=== PATIENT | male | born 1980 | race Caucasian/White ===

== ENCOUNTER 2018-05-25 08:04 | Emergency (ER) | payer OTHER, MEDICAID, SELFPAY ==
[2018-05-25 08:12] VITALS: BP 136/76; PULSE 68; RESP 20; TEMP 36.4; O2SAT 99; BMI 33.9
--- NOTE | 2018-05-25 08:18 | DI.RAD.S_ITS ---
PROCEDURE: XR FINGER RT MIN 2V INDICATIONS: injury, pain TECHNIQUE: AP hand, 2 views of the right second finger(s) acquired. COMPARISON: None. FINDINGS: Bones: No fractures or dislocations. No suspicious bony lesions. Soft tissues: No suspicious soft tissue calcifications. IMPRESSION: No acute radiographic findings. If pain persists, repeat study in 5-7 days is recommended to exclude occult fracture. Dictated by: Catherine Patterson M.D. on 05/25/2018 at 8:48 Approved by: Catherine Patterson M.D. on 05/25/2018 at 8:48
--- NOTE | 2018-05-25 08:19 | DI.RAD.S_ITS ---
PROCEDURE: XR RIBS RT MIN 3V W CXR 1V INDICATIONS: injury, pain TECHNIQUE: 4 views of the right ribs were acquired, along with a single view chest. COMPARISON: None. FINDINGS: Surgical changes and devices: None. Bones and chest wall: No fractures or dislocations. No suspicious bony lesions. Overlying soft tissues appear unremarkable. Lungs and pleura: No pleural effusions or pneumothorax. Lungs appear clear. Mediastinum: Mediastinal contours appear normal. Heart size is normal. IMPRESSION: No acute cardiopulmonary findings. No displaced rib fractures visualized. Dictated by: Catherine Patterson M.D. on 05/25/2018 at 8:48 Approved by: Catherine Patterson M.D. on 05/25/2018 at 8:48
--- NOTE | 2018-05-25 08:27 | ED_ITS ---
HPI - Fall General Chief Complaint: Fall Stated Complaint: Fell-upper right torso pain Time Seen by Provider: 05/25/18 08:16 Source: patient and family ( ) Mode of arrival: ambulatory Limitations: no limitations History of Present Illness HPI Narrative: this is a 37-year-old male who comes to the emergency department with complaint of right rib pain as well as a jammed finger and some bruising on his inner thighs. Patient states he was working on his boat when he fell forward through the nam onto the engine. patient states the engine is only probably a to 12 in below the nam opening. He tried to catch himself and jammed his finger. He has some bruising on his inner thighs and also has some pain on his right side of his chest. He states he still it is not very painful. If he tries to go from lying to sitting up that causes pain on the right side. He denies any shortness of breath. He has not noticed any bruising. He has not had any head injury, no neck or back pain. He did have any loss of consciousness or strike his head. No nausea or vomiting. no issues with bowel movements. No blood in urine. Patient is able to fully flex his finger. He has some bruising at the distal end of the 4th finger on his right hand. Also some bruising is inner thighs but states it is mild. He took ibuprofen last night and then again this morning at 7:00 a.m. and states that that was helpful. He denies any other past medical issues, no surgeries. He denies any allergies to medications. MD complaint: fall Related Data Home Medications Medication Instructions Recorded Confirmed [UNK THROAT SPRAY] #0 08/15/11 Allergies Allergy/AdvReac Type Severity Reaction Status Date / Time No Known Drug Allergies Allergy Verified 05/25/18 08:18 Review of Systems Review of Systems All systems reviewed & are unremarkable except as noted in HPI and below Constitutional Denies frequent falls and Denies headache(s) ENT Ears, Nose, Mouth, and Throat: Denies dizziness, Denies headache(s) and Denies neck pain Cardiovascular Reports chest pain (Right-sided chest), Denies irregular heart rhythm, Denies lightheadedness, Denies palpitations, Denies dyspnea, Denies dyspnea on exertion and Denies orthopnea Respiratory Denies cough, Denies dyspnea, Denies dyspnea on exertion and Denies wheezing Gastrointestinal Gastrointestinal: Denies abdominal pain, Denies diarrhea, Denies nausea and Denies vomiting Genitourinary Reports as per HPI and Denies other (Flank pain) Musculoskeletal Denies back pain, Denies neck pain, Denies numbness and Reports other (Bruising and inner thighs. Mild discomfort inner thighs.) Integumentary/Breasts Comments: bruising inner things and finger Neurologic Denies behavioral changes, Denies confusion, Denies dizziness, Denies frequent falls, Denies headache(s) and Denies numbness Psychiatric Denies behavioral changes and Denies confusion Endocrine Denies palpitations Allergic/Immunologic Denies wheezing Exam Initial Vital Signs Initial Vital Signs: Vital Signs Temperature 97.5 F L 05/25/18 08:12 Pulse Rate 68 05/25/18 08:12 Respiratory Rate 20 05/25/18 08:12 Blood Pressure 136/76 05/25/18 08:12 Pulse Oximetry 99 05/25/18 08:12 Const General: cooperative and well developed Nutritional Appearance: well nourished Orientation: alert, awake, oriented x3 and not confused [facility] Head: normal to inspection, normocephalic and atraumatic Ears: external ears normal Nose: external nose normal and No nasal discharge Face and sinus: sinuses nontender, face symmetric, no sinus tenderness and No dry mucous membranes Mouth: oral mucosae normal and moist mucous membranes Teeth and gingiva: dentition normal Throat: tonsils normal and uvula midline Neck Neck: normal visual inspection, trachea midline, No lymphadenopathy, No midline deformity and No JVD Lymphatic: No lymphedema Chest Chest: normal inspection of the chest, normal palpation of entire chest wall, No crepitus and No localized rib tenderness with anteroposterior compression Resp Effort & Inspection: normal respiratory effort, able to speak in complete sentences, no respiratory distress and no use of accessory muscles Auscultation: clear to auscultation bilaterally, no rales, no rhonchi and no wheezes Cardio Rate: regular rate Rhythm: regular rhythm Heart Sounds: no click, no gallops, no murmurs and no rubs Pulses: normal peripheral pulses GI Inspection: non-distended Palpation: soft, no hepatosplenomegaly, No guarding, No pulsatile mass and No tender Auscultation: normal bowel sounds Back/Spine/Pelvis Back: normal to inspection Cervical Spine: cervical ROM normal and No cervical spinal tenderness Thoracic/Lumbar Spine: thoraco-lumbar ROM normal, No thoraco-lumbar spasm, No thoracic spinal tenderness and No lumbar spinal tenderness Skin Trauma: other (ecchymosis b/l inner thighs. bruising of 2nd digit on right hand.) Neuro General: alert, oriented x3, gait normal and no focal motor deficits Cranial Nerves: CN's II-XI intact bilaterally Cognition: normal cognition Speech: speech normal Motor: muscle tone normal throughout, strength 5/5 throughout and other (normal gait) Sensory Exam: no sensory deficits noted Extrem Right upper extremity: hand Details: abnormal to inspection, normal capillary refill, neuromotor exam normal, tendon exam normal, normal ROM of fingers, swelling and ecchymosis (2nd digit distal ) Location: of the 2nd digit; no tenderness [facility] Social History Smoking Status: Never smoker Course Orders Ordered: ED Orders 05/25/18 08:18 XR finger RT min 2V Stat 05/25/18 08:19 XR ribs RT min 3V w CXR1V Stat Vital Signs - 8 hr 05/25/18 08:12 Temperature 97.5 F L Pulse Rate 68 Respiratory Rate 20 Blood Pressure 136/76 Pulse Oximetry 99 MDM - Fall Imaging Data ribs and CXR: Radiologist's impression: Patient: Nic Jane MR#: [id number] : 1980 Acct:[id number] Age/Sex: 37 / M Date of Service: 05/25/18 Loc: ED Accession Number: [id number] Procedure: XR ribs RT min 3V w CXR1V Ordering Provider: Marlena Madison D.O. PROCEDURE: XR RIBS RT MIN 3V W CXR 1V INDICATIONS: injury, pain TECHNIQUE: 4 views of the right ribs were acquired, along with a single view chest. COMPARISON: None. FINDINGS: Surgical changes and devices: None. Bones and chest wall: No fractures or dislocations. No suspicious bony lesions. Overlying soft tissues appear unremarkable. Lungs and pleura: No pleural effusions or pneumothorax. Lungs appear clear. Mediastinum: Mediastinal contours appear normal. Heart size is normal. IMPRESSION: No acute cardiopulmonary findings. No displaced rib fractures visualized. Dictated by: Catherine Patterson M.D. on 05/25/2018 at 8:48 Approved by: Catherine Patterson M.D. on 05/25/2018 at 8:48 finger xray: Radiologist's impression: Patient: Nic Jane MR#: [id number] : 1980 Acct:[id number] Age/Sex: 37 / M Date of Service: 05/25/18 Loc: ED Accession Number: [id number] Procedure: XR finger RT min 2V Ordering Provider: Marlena Madison D.O. PROCEDURE: XR FINGER RT MIN 2V INDICATIONS: injury, pain TECHNIQUE: AP hand, 2 views of the right second finger(s) acquired. COMPARISON: None. FINDINGS: Bones: No fractures or dislocations. No suspicious bony lesions. Soft tissues: No suspicious soft tissue calcifications. IMPRESSION: No acute radiographic findings. If pain persists, repeat study in 5 -7 days is recommended to exclude occult fracture. Dictated by: Catherine Patterson M.D. on 05/25/2018 at 8:48 Approved by: Catherine Patterson M.D. on 05/25/2018 at 8:48 Discharge Plan Departure Patient Disposition: Home Clinical Impression: Jammed interphalangeal joint of finger of right hand, Contusion of left thigh, Contusion of right thigh Discharge Date/Time: 05/25/18 09:54 Interventions: ED Discharge Assessment Last Done: 05/25/18 09:54 Instructions: DI for Finger Sprain Activity Restrictions/Additional Instructions: Follow-up in 7-10 days if your not having any improvement Um of your finger. Return to the emergency department if your having any rapidly worsening symptoms , numbness or tingling, weakness or difficulty with movement. You may continue ibuprofen 800 mg every 8 hr as needed. You may also take Tylenol up to a 1000 mg every 8 hr as needed with or instead of this. Prescriptions: No Action [UNK THROAT SPRAY] Qty: 0 RF: 0
[2018-05-25 09:54] VITALS: BP 127/71; PULSE 54; RESP 20; O2SAT 98; O2SAT 99
== END 2018-05-25 09:54 | disposition home or self-care (01) ==
PROVIDERS: Emergency Provider Emergency Medicine
DX: S69.91XA Unspecified injury of right wrist, hand and finger(s), initial encounter (principal); S70.12XA Contusion of left thigh, initial encounter; S70.11XA Contusion of right thigh, initial encounter; W01.10XA Fall on same level from slipping, tripping and stumbling with subsequent striking against unspecified object, initial encounter
CPT/HCPCS: 71101; 73140; 99282; 99283

== ENCOUNTER 2018-06-15 14:48 | Emergency (ER) | payer OTHER, MEDICAID, SELFPAY ==
[2018-06-15 14:52] VITALS: BP 132/68; PULSE 84; RESP 14; TEMP 36.4; O2SAT 97
--- NOTE | 2018-06-15 15:13 | ED.EYEPROB ---
HPI - Eye Problem General Chief complaint: Eye Problems Stated complaint: something in rt eye Time Seen by Provider: 06/15/18 15:06 Source: patient Mode of arrival: ambulatory Limitations: no limitations History of Present Illness HPI Narrative: Patient is a 38-year-old male who presents with right eye pain. He states that he was cutting something 5 days ago he thought he may have gotten sawdust in it. However the 1st 2 days after his cutting wood is he did have any issues. It progressively got to be more irritated. He was rubbing it quite a bit he wakes up in the morning with goopy in his eye. He denies blurry vision or double vision. He does not wear contacts or glasses. chief complaint: eye pain Related Data Home Medications Medication Instructions Recorded Confirmed [UNK THROAT SPRAY] #0 08/15/11 Previous Rx's Medication Instructions Recorded gentamicin 2 drop EYE-RIGHT Q4HRWA #5 ml 06/15/18 Allergies Allergy/AdvReac Type Severity Reaction Status Date / Time No Known Drug Allergies Allergy Verified 05/25/18 08:18 Review of Systems Review of Systems GENERAL: Denies chills,fever HEENT: See HPI RESPIRATORY: Denies dyspnea, cough, wheezing CARDIOVASCULAR: Denies chest pain, palpitations GASTROINTESTINAL: Denies nausea, vomiting MUSCULOSKELETAL: Denies extremity pain, injury SKIN: No rash, no laceration, no pruritus NEUROLOGIC: Denies weakness, dizziness, headache, numbness 8 point review of systems is negative except for those stated above and HPI PFSH Medical History Healthy adult (Acute) Social History Smoking Status: Never smoker Exam Initial Vital Signs Initial Vital Signs: Vital Signs Temperature 97.5 F L 06/15/18 14:52 Pulse Rate 84 06/15/18 14:52 Respiratory Rate 14 06/15/18 14:52 Blood Pressure 132/68 06/15/18 14:52 Pulse Oximetry 97 06/15/18 14:52 GENERAL: Well-appearing, well-nourished and in no acute distress. CARDIOVASCULAR: peripheral pulses in tact, cap refill <2 sec RESPIRATORY: No respiratory distress, speaks in full sentences without difficulty EXTREMITIES: Normal range of motion, no clubbing or edema. Neurovascularly intact NEUROLOGICAL: Cranial nerves II through XII grossly intact. Normal gait and speech. SKIN: Warm, dry, no petechiae, no rashes or lesions. Eyes Eyelids: eyelids normal Conjunctivae: conjunctivae normal and conjunctival abnormality right conjunctival injection diffuse Sclera: sclerae normal Cornea: corneas normal and fluorescein used Pupils: PERRL EOM: EOM intact bilaterally Course Vital Signs - 8 hr 06/15/18 14:52 Temperature 97.5 F L Pulse Rate 84 Respiratory Rate 14 Blood Pressure 132/68 Pulse Oximetry 97 MDM - Eye Problem Lab Data Attestation: I reviewed the patient's lab results. Visual acuity please see nursing notes Discharge Plan Departure Patient Disposition: Home Clinical Impression: Acute conjunctivitis of right eye Discharge Date/Time: 06/15/18 15:36 Interventions: ED Discharge Assessment Last Done: 06/15/18 15:36 Instructions: Conjunctivitis Activity Restrictions/Additional Instructions: *You have been diagnosed with right eye conjunctivitis *What to do: Were some clots as well outside the may be sensitive to light. *Continue to take medications as directed Eye drops every 4 hr while awake Tylenol and ibuprofen if needed pain take as directed *Follow up with your primary care provider in 2-3 days *Return to ER if you should have increasing pain change in vision or any new, worsening or concerning symptoms Prescriptions: New gentamicin 0.3 % drops 2 drop EYE-RIGHT Q4HRWA Qty: 5 RF: 0 No Action [UNK THROAT SPRAY] Qty: 0 RF: 0
--- NOTE | 2018-06-19 17:42 | PC.NURSE ---
Attempted to follow up,pt not available
== END 2018-06-15 15:36 | disposition home or self-care (01) ==
LOC: ED 15:26
PROVIDERS: Emergency Provider Emergency Medicine
DX: H10.31 Unspecified acute conjunctivitis, right eye (principal)
CPT/HCPCS: 99282

== ENCOUNTER 2023-04-09 09:15 | Emergency (ER) | payer OTHER, SELFPAY ==
[2023-04-09 09:35] VITALS: BP 135/93; PULSE 63; RESP 16; TEMP 36.7; O2SAT 99; BMI 36.1
--- NOTE | 2023-04-09 09:56 | ED.EXTPRO ---
HPI - Extremity Problem General Chief complaint: Extremity Problem,Nontraumatic Stated complaint: L arm pain, sent from [facility] for heart monitoring Time Seen by Provider: 04/09/23 09:41 Source: patient Mode of arrival: Ambulatory History of Present Illness HPI Narrative: Patient here from walk-in clinic for evaluation of left bicep/medial biceps pain. This started about 3 months ago. Denies denies any chest pain/exertional chest pain sweating nausea syncope numbness or tingling to the body or limbs. Patient does not smoke. No history of hypertension hyperlipidemia. No family history of coronary disease. No history aortic aneurysms or dissections. No history of blood clots in legs or lungs. Patient states he has no exertional chest pain or dyspnea. Pain in the left biceps is not triggered by exertion. However, patient states it only happens when he is driving. It is when his left hand is on the steering wheel. 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 Pain in the left bicep will start about 1 hour after driving. It quickly, again quickly resolved by straightening his left arm out. It resolves within 4 seconds. Patient agrees at this time no blood work or chest x-ray but does agree with EKG. Last episode was 2 days ago. He does not have this every day. He does not have this at home. It is only while driving. Patient denies any neck pain or any worsening pain with moving his head or neck. Related Data Allergies Allergy/AdvReac Type Severity Reaction Status Date / Time No Known Drug Allergies Allergy Verified 04/09/23 09:39 Review of Systems Review of Systems Narrative: GENERAL: negative chills, fatigue, malaise, fever, sweats. HEENT: negative sinus pain, ear pain, sore throat RESPIRATORY: negative dyspnea, cough CARDIOVASCULAR: negative chest pain, palpitations GASTROINTESTINAL: negative nausea, vomiting, abdominal pain : negative dysuria, frequency, hematuria MUSCULOSKELETAL: Positive muscle or bony pain SKIN: negative rash, skin lesions NEUROLOGIC: negative weakness, numbness ROS Unobtainable: All systems reviewed & are unremarkable except as noted in HPI and below Patient History Medical History Healthy adult Social History Smoking Status: Never smoker Smoking Status: Never smoker alcohol intake frequency: 0-2 drinks per day Substance Use Type: marijuana Exam Narrative Exam Narrative: GENERAL: in no distress, not toxic not dyspneic HEAD: Normocephalic. EYES: Pupils equal round ENT: Mucous membranes moist. NECK: Trachea midline. No midline tenderness or step-off. No pain with rotating his head left or right or tilting up and down. CARDIOVASCULAR: Regular rate and rhythm without murmurs RESPIRATORY: Clear to auscultation. Breath sounds equal bilaterally. No wheezes, rales, or rhonchi. GASTROINTESTINAL: Abdomen soft, non-tender EXTREMITIES: No gross deformities. Examination left upper extremity shoulder to fingers exposed. Limb is warm soft and pink strong radial pulse. 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 Nontender left bicep. No palpable cords. No discoloration. At this time patient denies any pain in the left bicep. No increased pain with ringing his hand above his head or behind his back. BACK: No flank tenderness. NEURO: AOx4. SKIN: Warm and dry PSYCH: Not anxious, is cooperative Initial Vital Signs Initial Vital Signs: Vital Signs Temperature 98.1 F 04/09/23 09:35 Pulse Rate 63 04/09/23 09:35 Respiratory Rate 16 04/09/23 09:35 Blood Pressure 135/93 H 04/09/23 09:35 Pulse Oximetry 99 04/09/23 09:35 Oxygen Delivery Method Room Air 04/09/23 09:35 Scores HEART Score Heart Score history: Slightly Suspicious Heart Score EKG: Normal Heart Score Age: < 45 years old Heart Score risk factors: No known risk factors Course Orders Ordered: ED Orders 04/09/23 09:35 EKG-12 Lead Stat Vital Signs Vital signs: Vital Signs - 8 hr 04/09/23 09:35 04/09/23 10:11 04/09/23 10:14 Temperature 98.1 F Pulse Rate 63 61 Pulse Rate [Left Radial] 72 Respiratory Rate 16 Blood Pressure 135/93 H 120/77 Pulse Oximetry 99 98 Oxygen Delivery Method Room Air Room Air MDM - Extremity (Nontraumatic) MDM Narrative Medical decision making narrative: Patient here from walk-in clinic for evaluation of left bicep/medial biceps pain. This started about 3 months ago. Denies denies any chest pain/exertional chest pain sweating nausea syncope numbness or tingling to the body or limbs. Patient does not smoke. No history of hypertension hyperlipidemia. No family history of coronary disease. No history aortic aneurysms or dissections. No history of blood clots in legs or lungs. Patient states he has no exertional chest pain or dyspnea. Pain in the left biceps is not triggered by exertion. However, patient states it only happens when he is driving. It is when his left hand is on the steering wheel. 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 Pain in the left bicep will start about 1 hour after driving. It quickly, again quickly resolved by straightening his left arm out. It resolves within 4 seconds. Patient agrees at this time no blood work or chest x-ray but does agree with EKG. Last episode was 2 days ago. He does not have this every day. He does not have this at home. It is only while driving. Patient denies any neck pain or any worsening pain with moving his head or neck. After history and exam EKG ordered, at this time no laboratory studies or imaging indicated. Clinically this is reproducible with patient's driving and position of the left arm. It is quickly resolved with straightening his left arm out. MDM CC: Left bicep pain Complicating co-morbidities: None Data collected from: Patient Medical records reviewed: No recent visit for this complaint Differential considered: Includes but not limited to [place] angina unstable angina DVT PE aortic dissection cervical radiculopathy peripheral neuropathy Exam documented above, pertinent findings include: Nontender arm Lab Test results independently reviewed as above. Pertinent findings: None indicated at this time Independently reviewed EKG sinus bradycardia rate 43, patient complains of no chest pain or dyspnea or dizziness Imaging studies independently reviewed: None indicated at this time. No chest x-ray. Clinically not DVT. No ultrasound Consultations: None indicated this time Treatments: None indicated at this time Re-evaluations: Reviewed exam with patient. Reviewed EKG as well. At this time he does agree this is likely positional due to his long hours of driving with this line of work. It is quickly resolved with straightening his arm out. Referral for primary care given. He will try changing position of his arm when driving. Return precautions reviewed with him. He desires discharge home Discussion: Appropriate for discharge home. Patient is right-handed. However pain is only occurring when he is driving for over an hour. This does not happen every time. However given that it quickly resolves after straightening out his arm within 4 seconds, this is likely not cardiac. Patient has low heart score. Pain is reproducible. Pain is quickly resolved with straightening his arm out. No blood work or imaging indicated at this time.. Return precautions reviewed with him. He desires discharge home. He has no pain in the biceps at this time. Diagnosis: Left arm pain Discharge Plan Departure Patient Disposition: Home Clinical Impression: Arm pain, left Instructions: DI for Arm Pain Activity Restrictions/Additional Instructions: Please call or see family doctor within a week for re-evaluation. Call provided primary care referral phone number to establish family doctor. Call [phone]. At this time exam and history of your problem is reassuring, likely this is due to position of your left arm while driving. This may be triggering and nerve causing your bicep pain. EKG at the sinus reassuring. No blood work or chest x-ray is indicated at this time as you not had any chest pain and this is likely not cardiac related. Please do try changing position of your left arm while driving. Return if worse if any questions or concerns Referrals: Miscellaneous,Doctor, [Primary Care Provider] - Stand Alone Forms: Patient Portal/API
[2023-04-09 10:11] VITALS: BP 120/77; PULSE 61; O2SAT 98
[2023-04-09 10:14] VITALS: PULSE 72
== END 2023-04-09 10:16 | disposition home or self-care (01) ==
PROVIDERS: Emergency Provider Emergency Medicine
DX: M79.602 Pain in left arm (principal); R07.9 Chest pain, unspecified
CPT/HCPCS: 93005; 93010; 99281; 99283

== ENCOUNTER → 2023-07-22 09:58 | Outpatient (CLI) | payer OTHER, SELFPAY ==
[2023-07-22 10:52] LABS: Hemoglobin A1C% w Est Avg Glu 5.9 % (4.0-6.0)
[2023-07-22 11:04] LABS: Alanine Aminotransferase 20 IU/L (<50); Albumin 4.2 g/dL (3.5-5.0); Albumin Globulin Ratio 1.3 (1.0-2.8); Alkaline Phosphatase 59 U/L (38-126); Aspartate Aminotransferase 33 IU/L (17-59); BUN Creatinine Ratio 19.7 (6-22); Bilirubin Total 0.5 mg/dL (0.2-1.3); Blood Urea Nitrogen 15 mg/dL (9-20); Calcium 9.3 mg/dL (8.4-10.2); Carbon Dioxide 30 mmol/L (22-32); Chloride 101 mmol/L (98-107); Cholesterol 189 mg/dL (140-199); Estimated Glomerular Filt Rate > 60 mL/min (>60); Globulin 3.3 g/dL (1.7-4.1); Glucose 96 mg/dL (70-100); HDL Cholesterol 52 mg/dL (40-60); HEMOLYSIS < 15 (0-50); LDL Cholesterol Calculated 116 mg/dL (<100); Potassium 4.5 mmol/L (3.4-5.1); Sodium 139 mmol/L (137-145); Total Protein 7.5 g/dL (6.3-8.2); Triglycerides 104 mg/dL (35-150)
== END ==
PROVIDERS: PCP Family Medicine; Referring Provider Family Medicine; Visit Provider Family Medicine
DX: Z13.1 Encounter for screening for diabetes mellitus (principal); Z13.220 Encounter for screening for lipoid disorders; E66.9 Obesity, unspecified; M79.602 Pain in left arm; F12.90 Cannabis use, unspecified, uncomplicated
CPT/HCPCS: 36415; 80053; 80061; 83036